=== PATIENT | female | born 1970 | race Caucasian/White ===

== ENCOUNTER 2017-03-25 13:35 | Emergency (ER) | payer BC ==
[2017-03-25 13:54] VITALS: BP 131/80
--- NOTE | 2017-03-25 14:11 | UC ---
Skin Complaint HPI - History of Current Complaint Chief Complaint: UCRash Time Seen by Provider: 03/25/17 14:01 Stated Complaint: RASH Hx Obtained From: Patient Hx Last Menstrual Period: 03/11/17 ?: No Onset/Duration: Sudden Onset - yesterday awoke with it., Lasting Days - 2, Worse Since - since onset. Onset Severity: Mild Current Severity: Moderate Location: Diffuse - both arms and legs. Character: Pruritus, Hives, Redness, Raised Aggravating: Touch Alleviating: Nothing Associated Signs & Symptoms: Positive: Rash - Allergy/Home Medications Allergies/Adverse Reactions: Allergies Allergy/AdvReac Type Severity Reaction Status Date / Time Penicillins Allergy Hives Verified 08/13/14 20:55 Home Medications: Home Medications Spironolactone TAB* [Aldactone TAB 25 MG*] 50 mg PO QAM 03/25/17 [History Confirmed 03/25/17] metFORMIN* [Glucophage 500 MG TAB *] 1,500 mg PO DAILY 03/25/17 [History Confirmed 03/25/17] Review of Systems Skin: Rash All Other Systems Reviewed And Are Negative: Yes PMH/Surg Hx/FS Hx/Imm Hx Previously Healthy: No - PCOS - Surgical History Surgical History: Yes Surgery Procedure, Year, and Place: D&C, 2014, [place] - Family History Known Family History: Positive: Cardiac Disease, Hypertension Negative: Diabetes - Social History Occupation: Employed Full-time Lives: With Family Alcohol Use: Rare Substance Use Type: None Smoking Status (MU): Never Smoked Tobacco Physical Exam Triage Information Reviewed: Yes Appearance: Well-Appearing, No Pain Distress, Well-Nourished Vital Signs: Initial Vital Signs Temp 98.5 F 03/25/17 13:46 Pulse 86 03/25/17 13:46 Resp 16 03/25/17 13:46 BP 131/80 03/25/17 13:46 Pulse Ox 98 03/25/17 13:46 Vital Signs Reviewed: Yes Eyes: Positive: Conjunctiva Clear ENT: Positive: Pharynx normal, TMs normal Neck exam: Normal Respiratory Exam: Normal Cardiovascular Exam: Normal Musculoskeletal Exam: Normal Neurological Exam: Normal Psychological Exam: Normal Skin: Positive: rashes - urticaria on arms and legs Course/Dx - Differential Diagnoses - Skin Complaint Differential Diagnoses: Anaphylaxis, Angioedema, Cellulitis, Urticaria - Diagnoses Provider Diagnoses: Acute urticaria Discharge - Discharge Plan Condition: Stable Disposition: HOME Prescriptions: predniSONE TAB* [Deltasone TAB*] 20 mg PO DAILY #18 tab Additional Instructions: You can use fexofenadine or loratidine OTC for non-sedating antihistamines.
== END 2017-03-25 14:31 | disposition home or self-care (01) ==
LOC: UCCORT 13:35
DX: L50.9 Urticaria, unspecified (principal); Z88.0 Allergy status to penicillin
CPT/HCPCS: 99212; G0463